=== PATIENT | male | born 1960 | race African-American/Black ===

== ENCOUNTER 2019-07-10 11:58 | Inpatient (IN) ==
[2019-07-10 12:31] LABS: ABS Lymphocytes 2.1 10^3/ul (1.0-4.8); ABS Monocytes 0.6 10^3/ul (0-0.8); Hematocrit 42 % (42-52); Hemoglobin 14.3 g/dL (14.0-18.0); Mean Corpuscular HGB Conc 34 g/dL (31-36); Mean Corpuscular Hemoglobin 29 pg (27-31); Mean Corpuscular Volume 84 fL (80-94); Mean Platelet Volume 8.9 fL (7.4-10.4); Platelet Count 273 10^3/uL (150-450); Red Blood Count 4.98 10^6 /uL (4.18-5.48); Red Cell Distribution Width 14 % (10-15); White Blood Count 6.3 10^3/uL (3.5-10.8)
[2019-07-10 12:32] LABS: ABS Eosinophils 0.1 10^3/ul (0-0.6); Eosinophil % 1.1 %; Nucleated Red Blood Cells % 0.1
[2019-07-10 12:44] LABS: Activated Partial Thrombo Time 29.6 seconds (26.0-38.0); INR 1.03 (0.82-1.09)
[2019-07-10] MEDS: hydrALAZINE 20 mg/ml 1 ML Vial IV IV SLOW PU ONE ×4 (12:51→15:33)
[2019-07-10 13:00] LABS: Albumin/Globulin Ratio 1.1 (1-3); BUN/Creatinine Ratio 13.7 (8-20); EGFR African American 68.2 (>60); EGFR Non-African American 56.4 (>60); Globulin 3.5 g/dL (2-4); Potassium 3.9 mmol/L (3.5-5.0); Total Bilirubin 0.4 mg/dL (0.2-1.0); Total Protein 7.5 g/dL (6.4-8.9); Troponin I 0.01 ng/mL (<0.03)
[2019-07-10 13:02] LABS: CKMB ng/mL 2.2 ng/mL (0.6-6.3)
[2019-07-10 13:24] LABS: TSH (Thyroid Stimulating Horm) 0.62 mcIU/mL (0.34-5.60)
[2019-07-10] MEDS ORDERED: hydrALAZINE 20 mg/ml 1 ML Vial IV IV SLOW PU ONE (16:00)
[2019-07-10 17:30] LABS: Urine Appearance Clear; Urine Bilirubin Negative (Negative); Urine Blood Negative (Negative); Urine Color Yellow; Urine Glucose Negative (Negative); Urine Ketones Negative (Negative); Urine Nitrite Negative (Negative); Urine Protein Negative (Negative); Urine Specific Gravity 1.015 (1.010-1.030); Urine Urobilinogen Negative (Negative)
[2019-07-10] MEDS ORDERED: Iodixanol (CONTRAST) 320 MG/ML 100 ML SDV IV ONE ×2 (18:39→23:17)
[2019-07-10] MEDS: niCARdipine 0.1MG/ML IVPREMIX 20 MG/200 ML BAG IV SCH ×2 (20:12→21:23)
[2019-07-10] MEDS ORDERED: Labetalol IV 5 MG/ML 20 ml VIAL IV PUSH PRN ×2 (20:42→23:31)
[2019-07-10] MEDS ORDERED: NS 0.9% IVPB SCH (22:00)
[2019-07-10] MEDS ORDERED: NICARDIPINE IVPB SCH (22:00)
[2019-07-10 23:26] LABS: HDL Cholesterol 37.7 mg/dL
[2019-07-11 00:32] LABS: Troponin I 0.05 ng/mL (<0.03)
[2019-07-11] MEDS ORDERED: Labetalol IV 5 MG/ML 20 ml VIAL IV PUSH ONE (01:51)
[2019-07-11] MEDS ORDERED: niCARdipine 0.1MG/ML IVPREMIX 20 MG/200 ML BAG IV ONE (04:09)
[2019-07-11 04:19] VITALS: BP 144/67
[2019-07-11] MEDS ORDERED: Aspirin EC 81 mg TAB.EC (enteric coated) PO SCH (09:00)
== END 2019-07-11 04:30 | disposition short-term general hospital (02) | DRG 199 ==
LOC: ED 11:58 → ICU 17:06
PROVIDERS: ADMIT Internal Medicine; ATTEND Internal Medicine